=== PATIENT | male | born 1955 | race Caucasian/White ===

== ENCOUNTER 2020-11-26 16:50 | Outpatient (RCR) | payer OTHER, SELFPAY ==
[2020-11-26] MEDS: COVID-19 VACC, MRNA(PFIZER)/PF 30 MCG/0.3 ML SYRINGE IM (09:21)
[2020-12-17] MEDS: COVID-19 VACC, MRNA(PFIZER)/PF 30 MCG/0.3 ML SYRINGE IM (09:13)
== END 2021-02-18 23:59 ==
LOC: IMMUN 16:50
PROVIDERS: Visit Provider Family Medicine
DX: Z23 Encounter for immunization (principal)
CPT/HCPCS: 0001A; 0002A; 91300